=== PATIENT | female | born 1930 | race Caucasian/White ===

== ENCOUNTER 2017-01-14 04:08 | Emergency (ER) | payer MEDICARE, BC ==
[2017-01-14 03:36] LABS: BASOPHILS 0.2 %; BASOPHILS ABSOLUTE 0.01 10/3/uL (0.0-0.16); EOSINOPHILS 0.4 %; EOSINOPHILS ABSOLUTE 0.02 10/3/uL (0.0-0.53); ER CBC TAT 0 Hrs 10 Mins; HEMATOCRIT 36.4 % (36.0-48.0); IMMATURE GRANULOCYTES 0.4 %; IMMATURE GRANULOCYTES ABSOLUTE 0.02 10/3/uL (0.0-0.11); LYMPHOCYTES 22.7 %; LYMPHOCYTES ABSOLUTE 1.29 10/3/uL (0.67-4.30); MEAN CORPUSCULAR VOLUME 94.1 fL (80-100); MEAN PLATELET VOLUME 10.1 fL (9.2-13.0); MONOCYTES 7.9 %; MONOCYTES ABSOLUTE 0.45 10/3/uL (0.21-1.20); NEUTROPHILS 68.4 %; PLATELET COUNT 226 10/3/uL (150-400); RBC DISTRIBUTION WIDTH 13.6 % (12.0-16.0); RED CELL COUNT 3.87 10/6/uL (4.0-5.6); WHITE BLOOD CELLS 5.7 10/3/uL (4.5-10.5)
[2017-01-14 03:42] LABS: MANUAL DIFF NO %
[2017-01-14 03:49] LABS: ALBUMIN 3.2 G/DL (3.5-5.0); ALKALINE PHOSPHATASE 60 U/L (45-117); BUN (BLOOD UREA NITROGEN) 23 MG/DL (6-23); CALCIUM, SERUM 9.5 MG/DL (8.5-10.4); CHLORIDE, SERUM 107 MMOL/L (96-112); CO2 (CARBON DIOXIDE) 29 MMOL/L (24-34); CREATININE 1.05 MG/DL (0.55-1.02); GFR AFRICAN AMERICAN 56 ML/MIN (>=60); GFR NON AFRICAN AMERICAN 48 ML/MIN (>=60); GLOBULIN 3.3 G/DL (2.5-4.1); GLUCOSE, SERUM 89 MG/DL (60-99); POTASSIUM, SERUM 4.5 MMOL/L (3.5-5.3); SGOT(AST) 10 U/L (5-40); SGPT(ALT) < 6 U/L (5-65); SODIUM, SERUM 144 MMOL/L (135-148); TOTAL BILIRUBIN 0.3 MG/DL (0-1.2); TOTAL PROTEIN 6.5 G/DL (6.0-8.5)
[~2017-01-14 04:08] MED LIST: ACIDOPHILU1 PO; ACIDOPHILU2 PO; ALEVE220 MG PO; ARTHRITIS PAIN REL PO; BION TEARS; CALMOSEPTINE O2.5 OZ TOP; CLARIT10 PO; D.O.S.100 MG PO; DEPAKOT250 PO; DEPAKOTE 125 M125 MG PO; DEPAKOTE 125 MG PO; DEPAKOTEER PO; DEPASPRINK PO; DITRO5 PO; EXELON3 PO; EXELON4.6T TOP; HYDROCORT PR; IMOD PO; L20 PO; LEVAQUIN750 MG PO; LEVOTHYROXIN25 MCG PO; LITH150 PO; MACROBID PO; MIRALAX POWDER1 PKT PO; MOMUD PO; MYLUD PO; NAMENDA10 MG PO; NAMENDA5 PO; NORCO1 TA1 PO; NYS500UDL PO; PATADAY OPH; PRAMOXINE PR; PREDFORTE OPH; PROCTOZONE1 CRE RE; REQUIP1 PO; SANTYL TOP; SEROQUEL25 PO; SEROQUEL50 MG PO; SIN25 PO; SYN.025B PO; T PO; TRAZ50 PO; TURMERIC PO; V5 PO; VITAMIN D1000 UNI1 PO; ZYRTEC ALLGY10 MG PO
== END 2017-01-14 06:00 | disposition home or self-care (01) ==
LOC: ER 04:08
PROVIDERS: Physician Assistant
DX: F03.90 Unspecified dementia, unspecified severity, without behavioral disturbance, psychotic disturbance, mood disturbance, and anxiety (principal); N18.9 Chronic kidney disease, unspecified; F31.9 Bipolar disorder, unspecified; G20 Parkinson's disease; Z79.899 Other long term (current) drug therapy
CPT/HCPCS: 70450; 71010; 80053; 85025; 93005; 99285